=== PATIENT | female | born 1990 | race Caucasian/White ===

== ENCOUNTER 2018-08-21 08:40 | Day surgery (SDC) | payer OTHER ==
[~2018-08-21] VITALS: Ht 170.2 cm; Wt 117.5 kg
[~2018-08-21 08:40] MED LIST: ACET325; ACET325 PO; ACET500 PO; ALBU3IS; ALBU3IS INH; ALBU90OI; ALBU90OI INH; ALBU90OI6 INH; AMOCLA875 PO; AMPDEX10CR PO; AMPHETAMINE-DEXTROAM PO; AZIT250; BENZ100A PO; BIRTH CONTROL PATCH; BUSP15 PO; CEPH500 PO; CHOL10002 PO; CYCL10 PO; Ciprodex Otic7.5 ML LEFTEAR; Colace100 MG PO; DIPH50 PO; DOCU100 PO; DOXY100 PO; FAMO20 PO; FAMO40 PO; FLUSAL1005 IH; FLUSAL2505; FLUT110OIA IH; HYDACE5 PO; HYDGUAL120 PO; HYDR1TAB94 PO; IBUP600 PO; IBUP800 PO; LORA10ER PO; META800 PO; MULVITMINE PO; Miralax17 GM PO; NAPR500 PO; NITR100CA PO; OLAN20 MM; OLAN7.5; OXYACE5T PO; OXYACE7.5T PO; PENVK500 PO; PRAHYD1AE TOP; PROACE100 PO; PROM25 PO; Prednisone50 MG PO; RANI150 PO; RXCYCL10 PO; RXNAPNA550 PO; Robaxin500 MG PO; SULTRIDS PO; THC; TRIA80TC TOP; Ultram50 MG PO; Verotin-Gr Cap1 EACH PO; ZIPR40 PO
--- NOTE | 2018-08-21 09:59 | NUR ---
Ambulatory in Day Surgery History, Chart, Medications and Allergies reviewed before start of procedure.Lungs clear T/O to Auscultation. Patient confirms NPO status and agrees with scheduled surgery. Pre-Op teaching done. Pt verbalizes understanding. Patient States Post-Procedure ride home has been arranged.
--- NOTE | 2018-08-21 10:16 | NUR ---
FAMILY BROUGHT BACK TO BEDSIDE. PT STATES VERY ANXIOUS TO JUST GO TO SLEEP DURING THE SX. RN EXPLAINED PROCEDURES.
--- NOTE | 2018-08-21 10:25 | NUR ---
PT SHOWED TO RN A BRUISE ON HER LEFT THIGH. STATES IT WHERE SHE SCRUBBED WITH THE SPONGES BEDORE SX. PT UP TO USE THE RESTROOM.
--- NOTE | 2018-08-21 10:33 | NUR ---
DR GARNER STATED TO GIVE 2MG IV VERSED TO PT. PT WILL KEEP PARTIAL DENTURES IN.
--- NOTE | 2018-08-21 10:34 | NUR ---
DR CALDWELL SAW PT. STATES NO ABX NEEDED. NO OTHER ORDERS.
--- NOTE | 2018-08-21 14:41 | NUR ---
PT NAUSEA RESOLVED. NO FURTHER OOZING AT INCISION SITES AFTER PT STOPPED WRETCHING. PT ABLE TO TOLERATE PO FOOD AND FLUID AFTER RECEIVNING NAUSEA MEDS. PT PROVIDED PAD AND PANTIES PRIOR TO GETTING DRESSED TO GO HOME. SMALL AMT OF S/S DRAINAGE NOTED ON ISSA PAD. Patient up to Ambulate independently. Gait steady. Discharge instructions reviewed with patient. Patient verbalizes understanding. Copy given to patient to take home. Patient States Post-Procedure ride home has been arranged. Discharged via wheelchair to private car for ride home. ALL BELONGIG[facility] RETURNED TO [facility]. ABLE TO WALK TO BATHROOM WITHOUT DIFFICULTY.
--- NOTE | 2018-08-22 07:09 | NUR ---
08/22/18 0709 Екатерина Hernandez VERIFICATIONS: EDIT CHART.
== END 2018-08-21 22:43 | disposition home or self-care (01) ==
LOC: ORSCMMR 08:40 → ORD 10:15 → ORSCMMR 10:15 → ORD 11:15 → ORSCMMR 22:43
PROVIDERS: Obstetrics & Gynecology
PROC: 0UT74ZZ Resection of Bilateral Fallopian Tubes, Percutaneous Endoscopic Approach (ICD-10-PCS; principal; 2018-08-21 10:15)
PROC: 0JPV0HZ Removal of Contraceptive Device from Upper Extremity Subcutaneous Tissue and Fascia, Open Approach (ICD-10-PCS; principal; 2018-08-21 10:15)
DX: Z30.2 Encounter for sterilization (principal); Z30.46 Encounter for surveillance of implantable subdermal contraceptive; J45.909 Unspecified asthma, uncomplicated; Z87.891 Personal history of nicotine dependence; E66.01 Morbid (severe) obesity due to excess calories; Z68.41 Body mass index [BMI] 40.0-44.9, adult; Z79.899 Other long term (current) drug therapy
CPT/HCPCS: 84703; 88300; 88302; J1100; J1885; J2250; J2405; J2550; J2710; J2765; J3010; J7120

== ENCOUNTER 2018-09-18 20:27 | Emergency (ER) | payer OTHER ==
[~2018-09-18] VITALS: Ht 172.7 cm; Wt 113.4 kg
== END 2018-09-18 21:23 | disposition home or self-care (01) ==
LOC: ER 20:27
DX: L23.7 Allergic contact dermatitis due to plants, except food (principal); F17.210 Nicotine dependence, cigarettes, uncomplicated; Z79.899 Other long term (current) drug therapy
CPT/HCPCS: 96372; 99282-25; J3301

== ENCOUNTER 2018-11-23 17:31 | Emergency (ER) | payer OTHER ==
[~2018-11-23] VITALS: Ht 172.7 cm; Wt 113.4 kg
[2018-11-23] MEDS ORDERED: ALBU90OI INH (18:23)
[2018-11-23] MEDS ORDERED: FLUT1DIS2 INH (18:23)
== END 2018-11-23 18:35 | disposition home or self-care (01) ==
LOC: ER 17:31
DX: J45.901 Unspecified asthma with (acute) exacerbation (principal); Z91.030 Bee allergy status; Z88.8 Allergy status to other drugs, medicaments and biological substances; Z79.899 Other long term (current) drug therapy; Z87.891 Personal history of nicotine dependence
CPT/HCPCS: 99283

== ENCOUNTER 2019-10-31 07:39 | Emergency (ER) | payer OTHER ==
[~2019-10-31] VITALS: Ht 172.7 cm; Wt 104.3 kg
[~2019-10-31 07:39] MED LIST changes: +FLUT1DIS2 INH
[2019-10-31] MEDS ORDERED: Imitrex25 MG PO (07:59)
== END 2019-10-31 08:42 | disposition home or self-care (01) ==
LOC: ER 07:39
DX: R51 Headache (principal); Z88.8 Allergy status to other drugs, medicaments and biological substances; Z91.030 Bee allergy status; Z79.899 Other long term (current) drug therapy
CPT/HCPCS: 99283

== ENCOUNTER 2022-02-06 21:50 | Emergency (ER) | payer OTHER ==
[~2022-02-06] VITALS: Ht 172.7 cm; Wt 92.5 kg
[~2022-02-06 21:50] MED LIST changes: +DICY20 PO; +Imitrex25 MG PO; +ONDA4ODT MM
== END 2022-02-07 00:24 | disposition home or self-care (01) ==
LOC: ER 21:50
DX: S02.2XXB Fracture of nasal bones, initial encounter for open fracture (principal); S00.03XA Contusion of scalp, initial encounter; W10.9XXA Fall (on) (from) unspecified stairs and steps, initial encounter; Z91.038 Other insect allergy status; Z88.8 Allergy status to other drugs, medicaments and biological substances
CPT/HCPCS: 12011; 70450; 99283-25; A9270

== ENCOUNTER 2024-05-28 11:13 | Emergency (ER) | payer OTHER ==
[~2024-05-28] VITALS: Ht 172.7 cm; Wt 99.8 kg
[2024-05-28] MEDS ORDERED: CYCL10 PO (11:41)
[2024-05-28] MEDS ORDERED: OXYC10TA19 PO (11:41)
[2024-05-28] MEDS ORDERED: LAMOTRIGINE100 M1 PO (11:41)
[2024-05-28] MEDS ORDERED: Phentermine HCl30 MG (11:42)
[2024-05-28 11:45] LABS: BASOPHILS ABSOLUTE AUTO 0.03 K/mm3 (0.00-0.23); BASOPHILS PERCENT AUTO 1 % (0-2); EOSINOPHILS ABSOLUTE AUTO 0.11 K/mm3 (0.00-0.68); EOSINOPHILS PERCENT AUTO 2 % (0-6); Hematocrit 40.7 % (33.0-51.0); Hemoglobin 14.1 g/dL (11.5-16.0); IMMATURE GRAN ABSOLUTE AUTO 0.01 K/mm3 (0.00-0.10); IMMATURE GRAN PERCENT AUTO 0 % (0-1); LYMPHOCYTES ABSOLUTE AUTO 1.46 K/mm3 (0.84-5.20); LYMPHOCYTES PERCENT AUTO 22 % (21-46); MONOCYTES PERCENT AUTO 5 % (4-13); Mean Corpuscular HGB 28.8 pg (26.0-34.0); Mean Corpuscular HGB Conc 34.6 g/dL (31.5-36.5); Mean Corpuscular Volume 83 fL (80-100); Mean Platelet Volume 11.5 fL (9.1-12.4); NEUTROPHILS ABSOLUTE AUTO 4.73 K/mm3 (1.96-9.15); NEUTROPHILS PERCENT AUTO 71 % (41-73); Platelet Count 171 K/mm3 (150-400); RDW Coefficient Variation 11.9 % (11.7-14.2); White Blood Cell Count 6.64 K/mm3 (4.00-11.30)
[2024-05-28] MEDS ORDERED: TRAZ100 PO (11:46)
[2024-05-28] MEDS ORDERED: K-Dur10 MEQ (11:47)
[2024-05-28] MEDS ORDERED: FUROSEMIDE20 MG PO (11:47)
[2024-05-28] MEDS ORDERED: ZIPRASIDONE HCL PO (11:47)
[2024-05-28] MEDS ORDERED: ALBUTEROL1.25 MG/3 (11:47)
[2024-05-28] MEDS ORDERED: Pulmicort Fle180 MCG (11:48)
[2024-05-28] MEDS ORDERED: Ketorolac Tromethamine 15mg Vial IV ONE (12:00)
[2024-05-28] MEDS ORDERED: Ondansetron HCl 2 MG / ML 2ML Vial IV ONE (12:00)
[2024-05-28] MEDS ORDERED: NS 1,000 ML IV SCH (12:00)
[2024-05-28 12:12] LABS: Albumin, Blood 3.8 g/dL (3.4-5.0); Albumin/Globulin Ratio 1.1 (0.8-1.8); Bilirubin, Total 0.8 mg/dL (0.1-1.0); Bun/Creatinine Ratio 15.6 (12.0-20.0); Calcium, Blood 8.5 mg/dL (8.5-10.1); Creatinine, Blood 0.77 mg/dL (0.40-1.00); Globulin, Blood 3.5 g/dL (2.2-4.0); Potassium, Blood 3.9 mmol/L (3.5-5.5); Total Protein, Blood 7.3 g/dL (6.4-8.2)
[2024-05-28 12:27] LABS: Influenza A, PCR NEGATIVE (NEGATIVE); Influenza B, PCR NEGATIVE (NEGATIVE); Resp Syncytial Virus, PCR NEGATIVE (NEGATIVE); SARS-Cov-2 (COVID-19) PCR, MMC NEGATIVE (NEGATIVE)
[2024-05-28] MEDS ORDERED: ONDA4ODT MM (13:01)
[2024-05-28 13:10] VITALS: BP 109/72
== END 2024-05-28 13:19 | disposition home or self-care (01) ==
LOC: ER 11:13
PROVIDERS: Physician Assistant
DX: R07.9 Chest pain, unspecified (principal); R11.2 Nausea with vomiting, unspecified; G43.909 Migraine, unspecified, not intractable, without status migrainosus; F17.290 Nicotine dependence, other tobacco product, uncomplicated; Z79.51 Long term (current) use of inhaled steroids; Z79.899 Other long term (current) drug therapy; Z91.030 Bee allergy status; Z88.8 Allergy status to other drugs, medicaments and biological substances
CPT/HCPCS: 0241U; 71046; 80053; 84484; 85025; 93005; 93010; 96361; 96374; 96375; 99285-25; J1885; J2405; J7030

== ENCOUNTER → 2024-10-21 | Outpatient (CLI) | payer OTHER ==
[~2024-10-21] MED LIST changes: +ALBUTEROL1.25 MG/3; +FUROSEMIDE20 MG PO; +K-Dur10 MEQ; +LAMOTRIGINE100 M1 PO; +OXYC10TA19 PO; +Phentermine HCl30 MG; +Pulmicort Fle180 MCG; +TRAZ100 PO; +ZIPRASIDONE HCL PO
[2024-10-21 12:55] LABS: U Amphetamine Screen Not Detected; U Barbituate Screen Not Detected; U Benzodiazapine Screen Not Detected; U Buprenorphine Screen Not Detected; U Cannabinoids Screen DETECTED; U Cocaine Screen Not Detected; U Methadone Screen Not Detected; U Methamphetamine Screen Not Detected; U Opiates Screen Not Detected; U Oxycodone Screen Not Detected; U Phencyclidine Screen Not Detected
== END ==
LOC: LAB SHORT 11:20 → LAB 11:20
PROVIDERS: Nurse Practitioner Family
DX: Z51.81 Encounter for therapeutic drug level monitoring (principal); Z79.899 Other long term (current) drug therapy

== ENCOUNTER 2025-06-03 18:07 | Emergency (ER) | payer OTHER ==
[~2025-06-03] VITALS: Ht 172.7 cm; Wt 104.3 kg
[2025-06-03 19:07] VITALS: BP 114/57
[2025-06-03] MEDS ORDERED: LIDOCAINE 2.5%/PRILOCAINE 2.5% CREAM 30 GM TUBE TOP ONE (20:00)
== END 2025-06-03 21:02 | disposition home or self-care (01) ==
LOC: ER 18:07
DX: K64.5 Perianal venous thrombosis (principal); Z53.29 Procedure and treatment not carried out because of patient's decision for other reasons; Z87.891 Personal history of nicotine dependence
CPT/HCPCS: A9270